=== PATIENT | female | born 1960 | race African-American/Black ===

== ENCOUNTER 2017-12-13 12:02 | Inpatient (IN) | payer OTHER ==
[2017-12-13 14:22] VITALS: BMI 24.6
--- NOTE | 2017-12-13 18:29 | HP ---
CIWA Score - CIWA Score Nausea/Vomitin-Mild Nausea/No Vomiting Muscle Tremors: 4-Moderate,w/Arms Extend Anxiety: 4-Mod. Anxious/Guarded Agitation: 4-Moderately Restless Paroxysmal Sweats: 1-Minimal Palms Moist Orientation: 0-Oriented Tacttile Disturbances: 0-None Auditory Disturbances: 0-None Visual Disturbances: 0-None Headache: 1-Very Mild CIWA-Ar Total Score: 15 Admission ROS BHS - HPI Chief Complaint: withdrawal sx Allergies/Adverse Reactions: Allergies Allergy/AdvReac Type Severity Reaction Status Date / Time lisinopril Allergy Mild Hives Verified 12/13/17 16:01 History of Present Illness: 57 years old female with long history of alcohol nicotine dependence has hypertension diabetes ii asthma cane ambulation and bipolar ii is admitted to detox Exam Limitations: No Limitations - Ebola screening Have you traveled outside of the country in the last 21 days: No Have you had contact with anyone from an Ebola affected area: No Have you been sick,other than usual withdrawal symptoms: No Do you have a fever: No - Review of Systems Constitutional: Loss of Appetite, Changes in sleep, Unintentional Wgt. Loss, Unexplained wgt Loss EENT: reports: Blurred Vision (eye glasses), Dental Problems (lower dental missing) Respiratory: reports: No Symptoms reported Cardiac: reports: No Symptoms Reported GI: reports: Nausea, Poor Appetite, Poor Fluid Intake, Indigestion, Abdominal cramping : reports: No Symptoms Reported Musculoskeletal: reports: Muscle Weakness (right leg) Integumentary: reports: No Symptoms Reported Neuro: reports: Tremors Endocrine: reports: Increased Urine Hematology: reports: No Symptoms Reported Psychiatric: reports: Judgement Intact, Orientated x3, Anxious, Depressed Other Systems: Reviewed and Negative Patient History - Patient Medical History Hx Anemia: No Hx Asthma: Yes Hx Chronic Obstructive Pulmonary Disease (COPD): No Hx Cancer: No Hx Cardiac Disorders: No Hx Congestive Heart Failure: No Hx Hypertension: Yes Hx Hypercholesterolemia: Yes Hx Pacemaker: No HX Cerebrovascular Accident: No Hx Seizures: No Hx Dementia: No Hx Diabetes: Yes Hx Gastrointestinal Disorders: Yes Hx Liver Disease: No Hx Genitourinary Disorders: No Hx Sexually Transmitted Disorders: No Hx Renal Disease (ESRD): No Hx Thyroid Disease: No Hx Human Immunodeficiency Virus (HIV): No Hx Hepatitis C: Yes (treated) Hx Depression: No (Manic depression) Hx Suicide Attempt: Yes (overdose 20 years old) Hx Bipolar Disorder: Yes Hx Schizophrenia: No - Patient Surgical History Past Surgical History: Yes Hx Neurologic Surgery: No Hx Cataract Extraction: No Hx Cardiac Surgery: No Hx Lung Surgery: No Hx Breast Surgery: No Hx Breast Biopsy: No Hx Abdominal Surgery: No Hx Appendectomy: No Hx Cholecystectomy: No Hx Genitourinary Surgery: No Hx Section: No Hx Orthopedic Surgery: Yes (Right ankle Sx, left wrist Sx 2013) Hx Hysterectomy: No Anesthesia Reaction: No - PPD History Previous Implant?: Yes Documented Results: Negative w/o proof Implanted On Prior [facility] Admission?: No PPD to be Administered?: Yes - Reproductive History Patient is a Female of Child Bearing Age (11 -55 yrs old): Yes Last Menstrual Period: 12/13/11 Patient : No - Smoking Cessation Smoking history: Current every day smoker Aproximately how many cigarettes per day: 20 Cigars Per Day: 0 Hx Chewing Tobacco Use: No Initiated information on smoking cessation: Yes 'Breaking Loose' booklet given: 12/13/17 - Substance & Tx. History Hx Alcohol Use: Yes Hx Substance Use: No Substance Use Type: Alcohol Hx Substance Use Treatment: Yes (2005) - Substances Abused Alcohol Route: Oral Frequency: Daily Amount used: Vodka 1 pt, Beer 3 40 oz Age of first use: 14 Date of Last Use: 12/13/17 Family Disease History - Family Disease History Family Disease History: [place]: Mother (), Other: Father (), Mother , Brother (/liver cirrhosis), Sister (/hiv) Admission Physical Exam S - Vital Signs Vital Signs: Vital Signs - 24 hr 12/13/17 14:14 Temperature 97.8 F Pulse Rate 95 H Respiratory 20 Rate Blood Pressure 146/106 - Physical General Appearance: Yes: Within Normal Limits, Mild Distress, Thin, Tremorous, Irritable, Sweating, Anxious HEENTM: Yes: Hearing grossly Normal, Normal ENT Inspection, Normocephalic, Normal Voice Respiratory: Yes: Chest Non-Tender, Lungs Clear, Normal Breath Sounds, No Respiratory Distress, No Accessory Muscle Use Neck: Yes: Supple, Trachea in good position Breast: Yes: Breasts Symetrical Cardiology: Yes: Regular Rhythm, S1, S2, Tachycardia Abdominal: Yes: Non Tender, Soft, Increased Bowel Sounds Genitourinary: Yes: Within Normal Limits Back: Yes: Normal Inspection Musculoskeletal: Yes: Gait Steady (cane), Joint Stiffness (right ankle) Extremities: Yes: Normal Inspection (right ankle scar), Non-Tender, Tremors Neurological: Yes: Fully Oriented, Alert, Normal Response, Depressed Affect, Other (right ankle weakness) Integumentary: Yes: Warm Lymphatic: Yes: Within Normal Limits - Diagnostic (1) Alcohol dependence with uncomplicated withdrawal Current Visit: Yes Status: Acute (2) Use of cane as ambulatory aid Current Visit: Yes Status: Chronic (3) Diabetes mellitus type II, controlled Current Visit: Yes Status: Chronic Qualifiers: Diabetes mellitus complication status: without complication Diabetes mellitus moth exterminator insulin use: without nursing home use Qualified Code(s): E11.9 - Type 2 diabetes mellitus without complications (4) Hypertension Current Visit: Yes Status: Chronic Qualifiers: Hypertension type: essential hypertension Qualified Code(s): I10 - Essential (primary) hypertension (5) Asthma Current Visit: Yes Status: Chronic Qualifiers: Asthma severity: mild Asthma persistence: intermittent Asthma complication type: with status asthmaticus Qualified Code(s): J45.22 - Mild intermittent asthma with status asthmaticus (6) Nicotine dependence Current Visit: Yes Status: Acute Qualifiers: Nicotine product type: cigarettes Substance use status: in withdrawal Qualified Code(s): F17.213 - Nicotine dependence, cigarettes, with withdrawal (7) Weight loss Current Visit: Yes Status: Acute (8) GERD (gastroesophageal reflux disease) Current Visit: Yes Status: Chronic Qualifiers: Esophagitis presence: without esophagitis Qualified Code(s): K21.9 - Gastro -esophageal reflux disease without esophagitis (9) Hyperlipidemia Current Visit: Yes Status: Chronic Qualifiers: Hyperlipidemia type: pure hypercholesterolemia Qualified Code(s): E78.00 - Pure hypercholesterolemia, unspecified; E78.0 - Pure hypercholesterolemia (10) Hepatitis C Current Visit: Yes Status: Resolved Qualifiers: Viral hepatitis chronicity: unspecified Hepatic coma status: without hepatic coma Qualified Code(s): B19.20 - Unspecified viral hepatitis C without hepatic coma Comment: treated (11) Bipolar II disorder Current Visit: Yes Status: Suspected Cleared for Admission BHS - Detox or Rehab S Level of Care: Medically Managed Detox Regimen/Protocol: Librium S Breath Alcohol Content Breath Alcohol Content: 0 Urine Pregancy Test - Result Urine Test Results: Negative- NO Line Present Urine Drug Screen - Results Drug Screen Negative: Yes
[2017-12-13] MEDS ORDERED: P-EPHED 60MG/TRIPROLIDI 2.5MG TABLET PO PRN (18:36)
[2017-12-13] MEDS ORDERED: MAG HYDROX/AL HYDROX/SIMETH 30 ML UNIT-DOSE CUP PO PRN (18:36)
[2017-12-13] MEDS ORDERED: ACETAMINOPHEN 325 MG TABLET (FP) PO PRN (18:36)
[2017-12-13] MEDS ORDERED: MAGNESIUM HYDROX 2400MG/30ML ORAL SUSPENSION 30 ML CUP PO PRN (18:36)
[2017-12-13] MEDS ORDERED: guaiFENesin/D-METHORPHAN HB 10 ML UNIT-DOSE CUPS PO PRN (18:36)
[2017-12-13] MEDS ORDERED: LOPERAMIDE HCL 2 MG CAPSULE PO PRN (18:36)
[2017-12-13] MEDS ORDERED: MENTHOL/PHENOL 1 EACH UD MM PRN (18:36)
[2017-12-13] MEDS ORDERED: chlordiazePOXIDE HCL 25 MG CAPSULE PO PRN (18:36)
[2017-12-13] MEDS ORDERED: NICOTINE POLACRILEX 4 MG GUM BC PRN (18:36)
[2017-12-13] MEDS ORDERED: MAGNESIUM CITRATE 300 ML BOTTLE PO PRN (18:36)
[2017-12-13] MEDS ORDERED: ALBUTEROL SO4 0.083% IH SOL 2.5 MG/3 ML VIAL.NEB. NEB PRN (18:42)
[2017-12-13] MEDS: chlordiazePOXIDE HCL 25 MG CAPSULE PO SCH (22:06)
[2017-12-13] MEDS: RANITIDINE HCL 150 MG TABLET (FP) PO SCH (22:06)
[2017-12-13] MEDS: THIAMINE HCL 100 MG TABLET (FP) PO SCH (22:06)
[2017-12-13] MEDS: CARVEDILOL 12.5 MG TABLET (FP) PO SCH (22:06)
[2017-12-13] MEDS: ATORVASTATIN CA 10 MG TABLET (FP) PO SCH (22:06)
[2017-12-13] MEDS: BUDESONIDE/FORMETEROL FUMARATE 80/4.5 mcg INHALER IH SCH (22:07)
[2017-12-14] MEDS: chlordiazePOXIDE HCL 25 MG CAPSULE PO SCH ×4 (05:20→22:10)
[2017-12-14] MEDS ORDERED: cloNIDine HCL 0.1 MG TABLET PO ONE (06:33)
[2017-12-14] MEDS: INSULIN SLIDING SCALE (NOVOLOG) 1 VIAL SQ SCH ×2 (07:13→17:21)
[2017-12-14] MEDS ORDERED: amLODIPine BESYLATE 10 MG TABLET (FP) PO SCH (10:00)
[2017-12-14] MEDS: HYDROCHLOROTHIAZIDE 25 MG TABLET (FP) PO SCH (10:09)
[2017-12-14] MEDS: ASPIRIN 81 MG CHEWABLE TABLETS PO SCH (10:09)
[2017-12-14] MEDS: RANITIDINE HCL 150 MG TABLET (FP) PO SCH ×2 (10:09→22:10)
[2017-12-14] MEDS: PRENATAL VITAMINS W/ FOLIC ACID TABLET (FP) PO SCH (10:09)
[2017-12-14] MEDS: amLODIPine BESYLATE 10 MG TABLET (FP) PO SCH (10:09)
[2017-12-14] MEDS: CARVEDILOL 12.5 MG TABLET (FP) PO SCH ×2 (10:09→22:10)
[2017-12-14] MEDS: NICOTINE 21 MG/24 HOURS TOPICAL PATCH TD SCH (10:10)
[2017-12-14] MEDS: lamoTRIgine 100 MG TABLET (FP) PO SCH (10:11)
[2017-12-14] MEDS: BUDESONIDE/FORMETEROL FUMARATE 80/4.5 mcg INHALER IH SCH ×2 (10:13→22:10)
--- NOTE | 2017-12-14 10:22 | CONSULT ---
[facility] Psychiatric Consult - Data Date of interview: 12/14/17 Admission source: [facility] Identifying data: This is 57 years old female ambulating with cane, with no psychiatric hospitalization history, history of Bipolar disorder intoxicated with: Alcohol Nicotine Substance Abuse History: - Smoking Cessation. Smoking history: Current every day smoker. Aproximately how many cigarettes per day: 20. Cigars Per Day: 0. Hx Chewing Tobacco Use: No. Initiated information on smoking cessation: Yes. ' Breaking Loose' booklet given: 12/13/17. - Substance & Tx. History. Hx Alcohol Use: Yes. Hx Substance Use: No. Substance Use Type: Alcohol. Hx Substance Use Treatment: Yes (2005). - Substances Abused. Alcohol. Route: Oral. Frequency: Daily. Amount used: Vodka 1 pt, Beer 3 40 oz. Age of first use: 14. Date of Last Use: 12/13/17 Medical History: HepC+, GERD, Hyperlipidemia, HTN, Weight loss, DM Psychiatric History: Patient reports history of Bipolar II Disorder, reports taskinjg prior to admission: Buspar 30mg po bid. Zoloft 50mg poqd. Lamictal 100mg po qd Physical/Sexual Abuse/Trauma History: Denies Additional Comment: Buspar 30mg po bid. Zoloft 50mg poqd. Lamictal 100mg po qd Mental Status Exam - Mental Status Exam Alert and Oriented to: Person Cognitive Function: Fair Patient Appearance: Unkempt Mood: Sad Affect: Mood Congruent Patient Behavior: Cooperative Speech Pattern: Delayed Voice Loudness: Mildly Soft/Quiet Thought Process: Circumstantial, Goal Oriented Thought Disorder: Being Controlled Hallucinations: Denies Suicidal Ideation: Denies Homicidal Ideation: Denies Insight/Judgement: Fair Sleep: Difficulty falling asleep Appetite: Weight loss Muscle strength/Tone: Mild Hypotonicity Gait/Station: Deferred Additional Comments: Buspar 30mg po bid. Zoloft 50mg poqd. Lamictal 100mg po qd Psychiatric Findings - Problem List ([place] 1, 2,3) (1) Bipolar II disorder Current Visit: Yes Status: Acute (2) Alcohol dependence with uncomplicated withdrawal Current Visit: Yes Status: Acute (3) Nicotine dependence Current Visit: Yes Status: Acute Qualifiers: Nicotine product type: cigarettes Substance use status: in withdrawal Qualified Code(s): F17.213 - Nicotine dependence, cigarettes, with withdrawal (4) Weight loss Current Visit: Yes Status: Acute (5) Use of cane as ambulatory aid Current Visit: Yes Status: Chronic - Initial Treatment Plan Initial Treatment Plan: Buspar 30mg po bid. Zoloft 50mg poqd. Lamictal 100mg po qd
[2017-12-14 10:25] LABS: CHLORIDE 108 mmol/L (98-107); POTASSIUM 4.6 mmol/L (3.5-5.1); SODIUM 145 mmol/L (136-145)
[2017-12-14 10:32] LABS: HEMATOCRIT 38.9 % (32.4-45.2); HEMOGLOBIN 12.5 GM/dL (10.7-15.3); MCHC 32.1 g/dl (32.0-36.0); MEAN CELL VOLUME 93.5 fl (80-96); MEAN PLT VOLUME 8.3 fl (7.5-11.1); PLATELET COUNT 206 K/MM3 (134-434); RBC 4.16 M/mm3 (3.60-5.2); RDW 14.2 % (11.6-15.6); WHITE BLOOD COUNT 5.9 K/mm3 (4.0-10.0)
[2017-12-14 11:27] LABS: ALBUMIN 3.4 g/dl (3.4-5.0); ALK PHOS 69 U/L (45-117); ANION GAP 10 (8-16); BILIRUBIN,TOTAL 0.4 mg/dL (0.2-1.0); BLOOD UREA NITROGEN 18 mg/dL (7-18); CO2 27 mmol/L (21-32); CREATININE 1.1 mg/dL (0.55-1.02); GLUCOSE,RANDOM 122 mg/dL (74-106); SGOT/AST 28 U/L (15-37); SGPT/ALT 20 U/L (12-78); TOT PROT 6.5 g/dl (6.4-8.2)
[2017-12-14] MEDS: SERTRALINE HCL 50 MG TABLET (FP) PO SCH (11:27)
--- NOTE | 2017-12-14 14:15 | PN ---
S CIWA - CIWA Score Nausea/Vomitin Muscle Tremors: 2 Anxiety: 2 Agitation: 2 Paroxysmal Sweats: 3 Orientation: 0-Oriented Tacttile Disturbances: 1-Very Mild Itch/Numbness Auditory Disturbances: 0-None Visual Disturbances: 0-None Headache: 0-None Present CIWA-Ar Total Score: 12 BHS Progress Note (SOAP) Subjective: IS , sweats Objective: 12/14/17 14:16 Vital Signs Temperature 981 F H 12/14/17 13:09 Pulse Rate 69 12/14/17 13:09 Respiratory Rate 16 12/14/17 13:09 Blood Pressure 130/84 12/14/17 13:09 O2 Sat by Pulse Oximetry (%) Laboratory Tests 12/13/17 12/14/17 12/14/17 16:57 05:19 07:00 WBC RBC Hgb Hct MCV MCH MCHC RDW Plt Count MPV Sodium Potassium Chloride Carbon Dioxide Anion Gap BUN Creatinine Creat Clearance w eGFR POC Glucometer 105 125 Random Glucose Calcium Total Bilirubin AST ALT Alkaline Phosphatase Total Protein Albumin RPR Titer HIV 1&2 Antibody Screen Negative HIV P24 Antigen Negative 12/14/17 12/14/17 12/14/17 07:00 07:00 07:00 WBC 5.9 RBC 4.16 Hgb 12.5 Hct 38.9 MCV 93.5 MCH 30.0 MCHC 32.1 RDW 14.2 Plt Count 206 MPV 8.3 Sodium 145 Potassium 4.6 Chloride 108 H Carbon Dioxide 27 Anion Gap 10 BUN 18 Creatinine 1.1 H Creat Clearance w eGFR 51.57 POC Glucometer Random Glucose 122 H Calcium 9.0 Total Bilirubin 0.4 AST 28 ALT 20 Alkaline Phosphatase 69 Total Protein 6.5 Albumin 3.4 RPR Titer Nonreactive HIV 1&2 Antibody Screen HIV P24 Antigen pt aox3 lying in bed in nad Assessment: 12/14/17 14:18 withdrawal sxx's 12/14/17 14:19 dm Plan: cont. detox increase fluids daily bgm
[2017-12-14 17:21] LABS: URINE APPEARANCE CLEAR; URINE BILIRUBIN NEGATIVE (NEGATIVE); URINE BLOOD NEGATIVE (NEGATIVE); URINE COLOR YELLOW; URINE GLUCOSE (UA) NEGATIVE (NEGATIVE); URINE KETONE NEGATIVE (NEGATIVE); URINE LEUK ESTERASE NEGATIVE (NEGATIVE); URINE NITRITE NEGATIVE (NEGATIVE)
[2017-12-14 17:39] LABS: URINE PROTEIN 2+ (NEGATIVE)
[2017-12-14 17:40] LABS: EPI CELLS RARE /HPF (FEW); URINE BACTERIA RARE /hpf (NONE SEEN); URINE MUCUS RARE
[2017-12-14 21:30] LABS: URINE APPEARANCE CLEAR; URINE BILIRUBIN NEGATIVE (NEGATIVE); URINE BLOOD NEGATIVE (NEGATIVE); URINE COLOR YELLOW; URINE GLUCOSE (UA) NEGATIVE (NEGATIVE); URINE KETONE NEGATIVE (NEGATIVE); URINE LEUK ESTERASE NEGATIVE (NEGATIVE); URINE NITRITE NEGATIVE (NEGATIVE); URINE PROTEIN NEGATIVE (NEGATIVE)
[2017-12-14] MEDS: THIAMINE HCL 100 MG TABLET (FP) PO SCH (22:10)
[2017-12-14] MEDS: ATORVASTATIN CA 10 MG TABLET (FP) PO SCH (22:10)
[2017-12-14] MEDS: ALBUTEROL SO4 18 GM HFA INHALER IH PRN (22:14)
[2017-12-15] MEDS: chlordiazePOXIDE HCL 25 MG CAPSULE PO SCH ×3 (05:46→18:02)
[2017-12-15] MEDS: INSULIN SLIDING SCALE (NOVOLOG) 1 VIAL SQ SCH ×2 (06:52→17:32)
--- NOTE | 2017-12-15 09:48 | PN ---
S CIWA - CIWA Score Nausea/Vomitin-No Nausea/No Vomiting Muscle Tremors: 2 Anxiety: 2 Agitation: 2 Paroxysmal Sweats: 1-Minimal Palms Moist Orientation: 0-Oriented Tacttile Disturbances: 0-None Auditory Disturbances: 0-None Visual Disturbances: 0-None Headache: 0-None Present CIWA-Ar Total Score: 7 BHS Progress Note (SOAP) Subjective: agitation anxiety tremor sweat Objective: 12/15/17 09:48 Vital Signs Temperature 98.2 F 12/15/17 09:33 Pulse Rate 75 12/15/17 09:33 Respiratory Rate 18 12/15/17 09:33 Blood Pressure 141/91 12/15/17 09:33 O2 Sat by Pulse Oximetry (%) Laboratory Last Values WBC 5.9 K/mm3 (4.0-10.0) 12/14/17 07:00 RBC 4.16 M/mm3 (3.60-5.2) 12/14/17 07:00 Hgb 12.5 GM/dL (10.7-15.3) 12/14/17 07:00 Hct 38.9 % (32.4-45.2) 12/14/17 07:00 MCV 93.5 fl (80-96) 12/14/17 07:00 MCH 30.0 pg (25.7-33.7) 12/14/17 07:00 MCHC 32.1 g/dl (32.0-36.0) 12/14/17 07:00 RDW 14.2 % (11.6-15.6) 12/14/17 07:00 Plt Count 206 K/MM3 (134-434) 12/14/17 07:00 MPV 8.3 fl (7.5-11.1) 12/14/17 07:00 Sodium 145 mmol/L (136-145) 12/14/17 07:00 Potassium 4.6 mmol/L (3.5-5.1) 12/14/17 07:00 Chloride 108 mmol/L (98-107) H 12/14/17 07:00 Carbon Dioxide 27 mmol/L (21-32) 12/14/17 07:00 Anion Gap 10 (8-16) 12/14/17 07:00 BUN 18 mg/dL (7-18) 12/14/17 07:00 Creatinine 1.1 mg/dL (0.55-1.02) H 12/14/17 07:00 Creat Clearance w eGFR 51.57 (>60) 12/14/17 07:00 POC Glucometer 137 UNITS (80-120) 12/15/17 05:48 Random Glucose 122 mg/dL (74-106) H 12/14/17 07:00 Calcium 9.0 mg/dL (8.5-10.1) 12/14/17 07:00 Total Bilirubin 0.4 mg/dL (0.2-1.0) 12/14/17 07:00 AST 28 U/L (15-37) 12/14/17 07:00 ALT 20 U/L (12-78) 12/14/17 07:00 Alkaline Phosphatase 69 U/L (45-117) 12/14/17 07:00 Total Protein 6.5 g/dl (6.4-8.2) 12/14/17 07:00 Albumin 3.4 g/dl (3.4-5.0) 12/14/17 07:00 Urine Color Yellow 12/14/17 20:00 Urine Appearance Clear 12/14/17 20:00 Urine pH 5.0 (5.0-8.0) 12/14/17 20:00 Ur Specific [place] 1.027 (1.001-1.035) 12/14/17 20:00 Urine Protein Negative (NEGATIVE) 12/14/17 20:00 Urine Glucose (UA) Negative (NEGATIVE) 12/14/17 20:00 Urine Ketones Negative (NEGATIVE) 12/14/17 20:00 Urine Blood Negative (NEGATIVE) 12/14/17 20:00 Urine Nitrite Negative (NEGATIVE) 12/14/17 20:00 Urine Bilirubin Negative (NEGATIVE) 12/14/17 20:00 Urine Urobilinogen 2.0 mg/dL (0.2-1.0) H 12/14/17 20:00 Ur Leukocyte Esterase Negative (NEGATIVE) 12/14/17 20:00 Urine WBC (Auto) 1 /hpf (3-5) 12/14/17 14:40 Urine RBC (Auto) <1 /hpf (0-3) 12/14/17 14:40 Ur Epithelial Cells Rare /HPF (FEW) 12/14/17 14:40 Urine Bacteria Rare /hpf (NONE SEEN) 12/14/17 14:40 Urine Mucus Rare 12/14/17 14:40 RPR Titer Nonreactive (NONREACTIVE) 12/14/17 07:00 HIV 1&2 Antibody Screen Negative 12/14/17 07:00 HIV P24 Antigen Negative 12/14/17 07:00 lab noted Assessment: 12/15/17 09:48 withdrawal sx Plan: continue detox
[2017-12-15] MEDS: SERTRALINE HCL 50 MG TABLET (FP) PO SCH (10:12)
[2017-12-15] MEDS: lamoTRIgine 100 MG TABLET (FP) PO SCH (10:12)
[2017-12-15] MEDS: ASPIRIN 81 MG CHEWABLE TABLETS PO SCH (10:12)
[2017-12-15] MEDS: PRENATAL VITAMINS W/ FOLIC ACID TABLET (FP) PO SCH (10:13)
[2017-12-15] MEDS: CARVEDILOL 12.5 MG TABLET (FP) PO SCH ×2 (10:13→22:08)
[2017-12-15] MEDS: amLODIPine BESYLATE 10 MG TABLET (FP) PO SCH (10:13)
[2017-12-15] MEDS: BUDESONIDE/FORMETEROL FUMARATE 80/4.5 mcg INHALER IH SCH ×2 (10:13→22:09)
[2017-12-15] MEDS: HYDROCHLOROTHIAZIDE 25 MG TABLET (FP) PO SCH (10:13)
[2017-12-15] MEDS: NICOTINE 21 MG/24 HOURS TOPICAL PATCH TD SCH (10:13)
[2017-12-15] MEDS: RANITIDINE HCL 150 MG TABLET (FP) PO SCH ×2 (10:13→22:10)
[2017-12-15] MEDS: ATORVASTATIN CA 10 MG TABLET (FP) PO SCH (22:08)
[2017-12-15] MEDS: THIAMINE HCL 100 MG TABLET (FP) PO SCH (22:08)
[2017-12-15] MEDS: chlordiazePOXIDE 5 MG CAPSULE PO SCH (22:11)
[2017-12-15] MEDS: ALBUTEROL SO4 18 GM HFA INHALER IH PRN (22:14)
[2017-12-16] MEDS: chlordiazePOXIDE 5 MG CAPSULE PO SCH (05:39)
[2017-12-16] MEDS: INSULIN SLIDING SCALE (NOVOLOG) 1 VIAL SQ SCH ×2 (06:30→17:24)
--- NOTE | 2017-12-16 09:25 | DS ---
[facility] Detox Discharge Summary Admission Date: 12/13/17 Discharge Date: 12/16/17 - History Present History: Alcohol Dependence Additional Comments: accelerated detox as patient requesting early d/c to rehab, feeling woozy from libirum ,medicallys table Pertinent Past History: anxiety, depresssion, insomnia, asthma, nicotine dependence, htn, DM, bipolar do , hyperlipidemia - Physical Exam Results Vital Signs: Vital Signs Temperature 97.7 F 12/16/17 09:21 Pulse Rate 71 12/16/17 09:21 Respiratory Rate 20 12/16/17 09:21 Blood Pressure 155/93 12/16/17 09:21 O2 Sat by Pulse Oximetry (%) Laboratory Tests 12/13/17 12/14/17 12/14/17 16:57 05:19 07:00 WBC RBC Hgb Hct MCV MCH MCHC RDW Plt Count MPV Sodium Potassium Chloride Carbon Dioxide Anion Gap BUN Creatinine Creat Clearance w eGFR POC Glucometer 105 125 Random Glucose Calcium Total Bilirubin AST ALT Alkaline Phosphatase Total Protein Albumin Urine Color Urine Appearance Urine pH Ur Specific [place] Urine Protein Urine Glucose (UA) Urine Ketones Urine Blood Urine Nitrite Urine Bilirubin Urine Urobilinogen Ur Leukocyte Esterase Urine WBC (Auto) Urine RBC (Auto) Ur Epithelial Cells Urine Bacteria Urine Mucus RPR Titer HIV 1&2 Antibody Screen Negative HIV P24 Antigen Negative 12/14/17 12/14/17 12/14/17 07:00 07:00 07:00 WBC 5.9 RBC 4.16 Hgb 12.5 Hct 38.9 MCV 93.5 MCH 30.0 MCHC 32.1 RDW 14.2 Plt Count 206 MPV 8.3 Sodium 145 Potassium 4.6 Chloride 108 H Carbon Dioxide 27 Anion Gap 10 BUN 18 Creatinine 1.1 H Creat Clearance w eGFR 51.57 POC Glucometer Random Glucose 122 H Calcium 9.0 Total Bilirubin 0.4 AST 28 ALT 20 Alkaline Phosphatase 69 Total Protein 6.5 Albumin 3.4 Urine Color Urine Appearance Urine pH Ur Specific [place] Urine Protein Urine Glucose (UA) Urine Ketones Urine Blood Urine Nitrite Urine Bilirubin Urine Urobilinogen Ur Leukocyte Esterase Urine WBC (Auto) Urine RBC (Auto) Ur Epithelial Cells Urine Bacteria Urine Mucus RPR Titer Nonreactive HIV 1&2 Antibody Screen HIV P24 Antigen 12/14/17 12/14/17 12/14/17 14:40 16:36 20:00 WBC RBC Hgb Hct MCV MCH MCHC RDW Plt Count MPV Sodium Potassium Chloride Carbon Dioxide Anion Gap BUN Creatinine Creat Clearance w eGFR POC Glucometer 138 Random Glucose Calcium Total Bilirubin AST ALT Alkaline Phosphatase Total Protein Albumin Urine Color Yellow Yellow Urine Appearance Clear Clear Urine pH 6.0 5.0 Ur Specific [place] 1.018 1.027 Urine Protein 2+ H Negative Urine Glucose (UA) Negative Negative Urine Ketones Negative Negative Urine Blood Negative Negative Urine Nitrite Negative Negative Urine Bilirubin Negative Negative Urine Urobilinogen 2.0 H 2.0 H Ur Leukocyte Esterase Negative Negative Urine WBC (Auto) 1 Urine RBC (Auto) <1 Ur Epithelial Cells Rare Urine Bacteria Rare Urine Mucus Rare RPR Titer HIV 1&2 Antibody Screen HIV P24 Antigen 12/15/17 12/15/17 12/16/17 05:48 16:44 05:38 WBC RBC Hgb Hct MCV MCH MCHC RDW Plt Count MPV Sodium Potassium Chloride Carbon Dioxide Anion Gap BUN Creatinine Creat Clearance w eGFR POC Glucometer 137 175 129 Random Glucose Calcium Total Bilirubin AST ALT Alkaline Phosphatase Total Protein Albumin Urine Color Urine Appearance Urine pH Ur Specific [place] Urine Protein Urine Glucose (UA) Urine Ketones Urine Blood Urine Nitrite Urine Bilirubin Urine Urobilinogen Ur Leukocyte Esterase Urine WBC (Auto) Urine RBC (Auto) Ur Epithelial Cells Urine Bacteria Urine Mucus RPR Titer HIV 1&2 Antibody Screen HIV P24 Antigen Pertinent Admission Physical Exam Findings: withdrawal sx - Medication Discharge Medications: Ambulatory Orders Omeprazole 40 mg PO DAILY 12/13/17 Sertraline HCl [Zoloft -] 50 mg PO DAILY 12/13/17 Buspirone HCl [Buspar -] 30 mg PO BID #60 tablet 12/14/17 Lamotrigine [LaMICtal -] 100 mg PO DAILY #30 tablet 12/14/17 Sertraline HCl [Zoloft -] 50 mg PO DAILY #30 tablet 12/14/17 Albuterol Sulfate Inhaler - [Ventolin HFA Inhaler -] 2 puff IH Q4H PRN #1 inhaler 12/16/17 Amlodipine Besylate 10 mg PO DAILY #30 tablet 12/16/17 Aspirin [ASA -] 81 mg PO DAILY #30 tab.chew 12/16/17 Atorvastatin Calcium [Lipitor] 10 mg PO HS #30 tablet 12/16/17 Carvedilol [Coreg -] 12.5 mg PO BID #60 tablet 12/16/17 Hydrochlorothiazide [Hctz -] 25 mg PO DAILY #30 tablet 12/16/17 Metformin HCl [Glucophage -] 850 mg PO BID #60 tablet 12/16/17 - Diagnosis (1) Alcohol dependence with uncomplicated withdrawal Current Visit: Yes Status: Chronic (2) Asthma Current Visit: Yes Status: Chronic Qualifiers: Asthma severity: mild Asthma persistence: intermittent Asthma complication type: with status asthmaticus Qualified Code(s): J45.22 - Mild intermittent asthma with status asthmaticus (3) Bipolar II disorder Current Visit: Yes Status: Chronic (4) Diabetes mellitus type II, controlled Current Visit: Yes Status: Chronic Qualifiers: Diabetes mellitus complication status: without complication Diabetes mellitus dedicated intermodal truck driver insulin use: without dedicated intermodal truck driver use Qualified Code(s): E11.9 - Type 2 diabetes mellitus without complications (5) GERD (gastroesophageal reflux disease) Current Visit: Yes Status: Chronic Qualifiers: Esophagitis presence: without esophagitis Qualified Code(s): K21.9 - Gastro -esophageal reflux disease without esophagitis (6) Hyperlipidemia Current Visit: Yes Status: Chronic Qualifiers: Hyperlipidemia type: pure hypercholesterolemia Qualified Code(s): E78.00 - Pure hypercholesterolemia, unspecified; E78.0 - Pure hypercholesterolemia (7) Hypertension Current Visit: Yes Status: Chronic Qualifiers: Hypertension type: essential hypertension Qualified Code(s): I10 - Essential (primary) hypertension (8) Nicotine dependence Current Visit: Yes Status: Chronic Qualifiers: Nicotine product type: cigarettes Substance use status: in withdrawal Qualified Code(s): F17.213 - Nicotine dependence, cigarettes, with withdrawal (9) Use of cane as ambulatory aid Current Visit: Yes Status: Chronic (10) Bipolar II disorder Current Visit: Yes Status: Suspected (11) Hepatitis C Current Visit: Yes Status: Resolved Qualifiers: Viral hepatitis chronicity: unspecified Hepatic coma status: without hepatic coma Qualified Code(s): B19.20 - Unspecified viral hepatitis C without hepatic coma - AMA Did Patient Leave Against Medical Advice: No
[2017-12-16] MEDS: lamoTRIgine 100 MG TABLET (FP) PO SCH (10:06)
[2017-12-16] MEDS: amLODIPine BESYLATE 10 MG TABLET (FP) PO SCH (10:06)
[2017-12-16] MEDS: RANITIDINE HCL 150 MG TABLET (FP) PO SCH ×2 (10:06→22:16)
[2017-12-16] MEDS: PRENATAL VITAMINS W/ FOLIC ACID TABLET (FP) PO SCH (10:06)
[2017-12-16] MEDS: NICOTINE 21 MG/24 HOURS TOPICAL PATCH TD SCH (10:06)
[2017-12-16] MEDS: BUDESONIDE/FORMETEROL FUMARATE 80/4.5 mcg INHALER IH SCH ×2 (10:06→22:15)
[2017-12-16] MEDS: ASPIRIN 81 MG CHEWABLE TABLETS PO SCH (10:06)
[2017-12-16] MEDS: SERTRALINE HCL 50 MG TABLET (FP) PO SCH (10:06)
[2017-12-16] MEDS: HYDROCHLOROTHIAZIDE 25 MG TABLET (FP) PO SCH (10:06)
[2017-12-16] MEDS: CARVEDILOL 12.5 MG TABLET (FP) PO SCH ×2 (10:06→22:15)
[2017-12-16] MEDS: ALBUTEROL SO4 18 GM HFA INHALER IH PRN (10:07)
[2017-12-16] MEDS: chlordiazePOXIDE HCL 10 MG CAPSULE PO SCH ×3 (11:28→17:39)
[2017-12-16] MEDS: THIAMINE HCL 100 MG TABLET (FP) PO SCH (22:14)
[2017-12-16] MEDS: ATORVASTATIN CA 10 MG TABLET (FP) PO SCH (22:14)
[2017-12-16] MEDS ORDERED: chlordiazePOXIDE HCL 10 MG CAPSULE PO SCH (23:00)
[2017-12-17] MEDS: INSULIN SLIDING SCALE (NOVOLOG) 1 VIAL SQ SCH (07:30)
--- NOTE | 2017-12-17 10:49 | PN ---
[facility] Progress Note Note: Pt was d/c today 12/17/17 though d/c summary was done yesterday. Pt was A & O x 3, will f/u for rehab at [facility]. Rx already sent to pharmacy.
[2017-12-17 11:11] VITALS: BP 148/94; PULSE 75; TEMP 97.3
== END 2017-12-17 09:00 | disposition home or self-care (01) | DRG 897 ==
LOC: YASAS 12:02 → Y6N 16:18
PROVIDERS: ADMIT Internal Medicine; ATTEND Internal Medicine
PROC: HZ2ZZZZ Detoxification Services for Substance Abuse Treatment (ICD-10-PCS; principal; 2017-12-13)
DX: F10.230 Alcohol dependence with withdrawal, uncomplicated (principal); F31.81 Bipolar II disorder; J45.22 Mild intermittent asthma with status asthmaticus; F17.213 Nicotine dependence, cigarettes, with withdrawal; I10 Essential (primary) hypertension; E11.9 Type 2 diabetes mellitus without complications; E78.5 Hyperlipidemia, unspecified; K21.9 Gastro-esophageal reflux disease without esophagitis; B19.20 Unspecified viral hepatitis C without hepatic coma; R00.0 Tachycardia, unspecified; R26.2 Difficulty in walking, not elsewhere classified; Z99.89 Dependence on other enabling machines and devices; Z79.84 Long term (current) use of oral hypoglycemic drugs; Z87.898 Personal history of other specified conditions; Z91.5 Personal history of self-harm
CPT/HCPCS: 36415; 80053; 81003; 81015; 82962; 85027; 86593; 87389; 93005; 93010; J0735